=== PATIENT | female | born 1960 | race Caucasian/White ===

== ENCOUNTER 2018-12-24 09:30 | Emergency (ER) | payer BC, OTHER ==
[2018-12-24] MEDS ORDERED: Ketorolac Tromethamine 30 MG/ML VIAL ONE (10:32)
--- NOTE | 2018-12-24 11:04 | RAD ---
FPortable chest radiograph: 12/24/2018 COMPARISON: 12/04/2014 HISTORY:Chest pain FINDINGS: Lungs are clear. Heart and mediastinal contours unremarkable. IMPRESSION: No acute findings
[2018-12-24 11:25] LABS: #Basophils 0.1 thou/uL (0.0-0.2); #Eosinphils 0.2 thou/uL (0.0-0.7); #Lymphocytes 3.1 thou/uL (1.20-3.40); #Monocytes 0.9 thou/uL (0.11-0.59); #Neutrophils 8.8 thou/uL (1.40-6.50); %Basophils 0.5 % (0.0-1.0); %Eosinophils 1.7 % (0.0-10.0); %Lymphocytes 23.8 % (21.0-51.0); %Monocytes 6.5 % (0.0-10.0); %Neutrophils 67.5 % (42.0-75.0); Hemoglobin 13.8 g/dL (12.0-16.0); Mean Corpuscular HGB CONC 32.1 g/dL (32.0-36.0); Mean Corpuscular Hemoglobin 27.5 pg (27.0-31.0); Mean Corpuscular Volume 85.6 fL (78.0-98.0); Mean Platelet Volume 9.2 fL (7.4-10.4); Platelet Count 237 thou/uL (130-400); Red Blood Cell (RBC) Count 5.02 mill/uL (4.20-5.40)
[2018-12-24 11:35] LABS: ALT (SGPT) 10 U/L (8-55); AST (SGOT) 14 U/L (5-34); Albumin 3.9 g/dL (3.5-5.0); Alkaline Phosphatase 118 U/L (40-150); Anion Gap 9 mmol/L (10-20); BUN (Urea Nitrogen) 15 mg/dL (9.8-20.1); Bilirubin, Total 0.3 mg/dL (0.2-1.2); CK (CPK) 79 U/L (29-168); Calc. Creatinine Clearance 0 mL/min (70-130); Calcium 9.4 mg/dL (7.8-10.44); Carbon Dioxide 31 mmol/L (22-29); Chloride 104 mmol/L (98-107); Estimated GFR-MDRD 71; Globulin 2.5 g/dL (2.4-3.5); Glucose 81 mg/dL (70-105); Potassium 4.4 mmol/L (3.5-5.1); Protein, Total 6.4 g/dL (6.0-8.3); Sodium 140 mmol/L (136-145)
[2018-12-24 11:38] LABS: CKMB 1.2 ng/mL (0-6.6)
== END 2018-12-24 13:20 | disposition home or self-care (01) ==
LOC: ERS 09:30
DX: R07.89 Other chest pain (principal); F41.9 Anxiety disorder, unspecified; F17.210 Nicotine dependence, cigarettes, uncomplicated; Z79.899 Other long term (current) drug therapy
CPT/HCPCS: 71045; 80053; 82550; 82553; 84484; 85025; 93005; 96374; J1885

== ENCOUNTER 2020-07-24 20:55 | Observation (INO) | payer OTHER ==
[2020-07-24 22:36] LABS: Troponin I Less than 0.010 ng/mL (< 0.028)
[2020-07-24] MEDS ORDERED: Ondansetron PF 4 MG/2 ML Vial IVP PRN ×2 (22:44→22:45)
[2020-07-24] MEDS ORDERED: Ondansetron ODT 4 MG TAB PO PRN (22:44)
[2020-07-24] MEDS ORDERED: Acetaminophen 325 MG TAB PO PRN ×2 (22:44→22:45)
[2020-07-24] MEDS ORDERED: Acetaminophen 650 MG Suppository PR PRN (22:44)
[2020-07-24] MEDS ORDERED: Ondansetron ODT 4 MG TAB SL PRN (22:45)
--- NOTE | 2020-07-24 22:51 | PDOC.FPRHP ---
- History of Present Illness Chief Complaint: CP, SOB, exertional dyspnea History of Present Illness: 60 yo F with no significant PMH presented to [place] ED complaining of CP, SOB, and exertional dyspnea. Patient explains she has been experiencing R sided jaw and shoulder pain since Thursday as well as significant congestion for several months. She went to doctor on Thursday who gave her a steroid shot, abx shot, and z-gayle for supposed sinus infection. This improved her congestion and pressure she was feeling in her face. Today the jaw and shoulder pain was worsening and she was also having chest pain in the center of her chest, SOB that worsened with exertion. Patient also complained of intermittent blurred vision since Thursday and a headache that has worsened today. ED Course: nitro and plavix in [place] ED which improved CP, SOB and jaw pain - Allergies/Adverse Reactions Allergies Allergy/AdvReac Type Severity Reaction Status Date / Time aspirin Allergy Verified 07/25/20 01:48 iodine Allergy Verified 07/25/20 01:48 meperidine HCl [From Demerol] Allergy Verified 07/25/20 01:48 - Home Medications Medication Instructions Recorded Confirmed Type Azithromycin [Zithromax] 250 mg PO DAILY 07/25/20 07/25/20 History - History PMHx: None PSHx: Hysterectomy at 28yo FHx: Mom-afib, alzheimers. Dad-HTN, DM, CHF Social: Denies T/A/D - Review of Systems General: denies: fever/chills Eyes: reports: vision changes ENT: reports: nasal congestion Respiratory: reports: congestion, shortness of breath. denies: cough Cardiovascular: reports: chest pain. denies: palpitation, edema, paroxysmal nocturnal dyspnea, orthopnea Gastrointestinal: reports: diarrhea. denies: nausea, vomiting, constipation, abdominal pain Genitourinary: denies: dysuria Skin: denies: rashes, itching Musculoskeletal: denies: pain, tenderness, swelling Neurological: reports: other (headache). denies: syncope, weakness - Vital signs BP: 149/69 HR: 75 RR: 16 Tmax: 98.1 Pox: 97% on RA Wt: 125kg FMR H&P: Results - EKG Interpretation EKG: sinus rhythm - Radiology Interpretation Chest x-ray Status: report reviewed by me (no acute process) FMR H&P: A/P - Plan 60 yo F with no significant PMH complaining of CP, SOB, and exertional dyspnea ACS r/o -initial trop negative -EKG- sinus rhythm -CXR - normal -D dimer negative -trend trops -stress test in AM -TSH, Mg, Phos, lipids pending Elevated blood pressure - No diagnosis of HTN - 149/69 - Continue to monitor DVT PPx: SCDs Diet: HH- NPO at midnight PCP-CC Code: FULL Dispo: eLOS <48hours pending troponin and stress test results FMR H&P: Upper Level - Plan Date/Time: 07/24/20 0261 I, Kali Tai DO, have evaluated this patient and agree with findings/plan as outlined by management intern resident. Pertinent changes/additions are listed here. 60 yo presents with chest and jaw pain relieved with nitro at outside ED she has multiple risk factors for CAD. her pain was sharp/stabbing in the middle of her chest with associated r jaw pain that would come and go intermittently. she denies any RIDER, exertional chest pain, syncope or SOB. hx of recurrent sinus infections treated recent with steroid and azithro. on exam she is comfortable and pain free, ttp over sternum, RRR, CTAB. VSS, EKG wnl, CXR wo acute cardiopulm abnormality. labs wnl. admit for acs ro, trend trop repeat ekg/nitro for chest pain. plan for stress in AM. risk stratify. suspect source of pain to be msk. See management intern note for mgmt of chronic med problems. Addendum - Attending - Attending Attestation Date/Time: 07/25/20 0026 I personally evaluated the patient and discussed the management with Dr. Nelson/Zaire. I agree with the History, Examination, Assessment and Plan documented above with any addition or exceptions noted below.
[2020-07-24 23:26] LABS: Cardiac Risk 4.5 (Less than 4.5); Cholesterol 177 mg/dl (< 200 Desired); HDL Cholesterol 39 mg/dL (>60 Neg Risk); LDL Cholesterol, Calculated 117 mg/dL; Phosphorus 2.8 mg/dL (2.3-4.7); Triglycerides 106 mg/dL (Less than 150)
[2020-07-24 23:53] VITALS: BMI 49.9
[2020-07-25 01:17] LABS: Troponin I Less than 0.010 ng/mL (< 0.028)
--- NOTE | 2020-07-25 06:22 | PDOC.FM ---
- Subjective Subjective: Patient reports no chest/jaw/shoulder pain, overall feels the best out of any days over the past week. - Objective MAR Reviewed: Yes Vital Signs & Weight: Vital Signs (12 hours) Temp Pulse Resp BP Pulse Ox 07/25/20 03:40 98.1 F 67 12 160/74 H 96 07/24/20 22:45 98.1 F 75 16 149/69 H 97 07/24/20 22:44 97 Weight Weight 123.876 kg Phys Exam - Physical Examination Constitutional: NAD Respiratory: no wheezing, no rales, no rhonchi, clear to auscultation bilateral Cardiovascular: RRR, no significant murmur, no rub Gastrointestinal: soft, non-tender, no distention, positive bowel sounds Musculoskeletal: no edema, pulses present Neurological: non-focal, moves all 4 limbs Dx/Plan - Plan Plan: 60 yo F with no significant PMH complaining of CP, SOB, and exertional dyspnea ACS r/o -Trop negative X3 -EKG- sinus rhythm -CXR - normal -D dimer negative -stress test today Elevated blood pressure - No diagnosis of HTN - HTN 149-160/69-74 - Continue to monitor DVT PPx: SCDs Diet: NPO until stress test PCP-CC Code: FULL Dispo: eLOS <48hours, DC today pending stress test Addendum - Attending - Attending Attestation Date/Time: 07/25/201825 I personally evaluated the patient and discussed the management with Dr. Gomez I agree with the History, Examination, Assessment and Plan documented above with any addition or exceptions noted below - Patient without complaints. no further episodes of chest pain. Afebrile VSS A/P: 1) Chest pain r/o ACS - trop negative x 3; stress test pending. If negative will plan to d/c home.
[2020-07-25 13:00] LABS: SARS-CoV-2 MS2 Positive; SARS-CoV-2 N Gene Negative; SARS-CoV-2 S Gene Negative; SARS-CoV-2 by NAA Not Detected (NotDetected); SARS-CoV-2 orf1ab Negative
[2020-07-26] MEDS ORDERED: Polyethylene Glycol 3350 17 GM Packet PO PRN (06:05)
--- NOTE | 2020-07-26 07:58 | PDOC.FM ---
- Subjective Subjective: Patient doing well this AM, reports neck pain overnight that was relieved with ice. Otherwise feeling well. Concerned that she is unaware of what's happening with her stress test. - Objective Vital Signs & Weight: Vital Signs (12 hours) Temp Pulse Resp BP Pulse Ox 07/26/20 05:27 96 07/26/20 04:30 97.6 F 61 18 152/72 H 96 Weight Weight 122.186 kg I&O: 07/25/20 07/26/20 07/27/20 06:59 06:59 06:59 Intake Total 500 1540 Output Total 2800 Balance 500 -1260 Phys Exam - Physical Examination Constitutional: NAD Respiratory: no wheezing, no rales, no rhonchi Cardiovascular: RRR, no significant murmur, no rub Gastrointestinal: soft, non-tender, no distention, positive bowel sounds Dx/Plan - Plan Plan: 60 yo F with no significant PMH complaining of CP, SOB, and exertional dyspnea ACS r/o -Trop negative X3 -EKG- sinus rhythm -CXR - normal -D dimer negative -stress test today-appears it is 2 part study Elevated blood pressure - No diagnosis of HTN - HTN 149-160/69-74 - Continue to monitor - Likely work up outpatient DVT PPx: SCDs Diet: NPO until stress test PCP-CC Code: FULL Dispo: eLOS <48hours, DC today pending stress test Addendum - Attending - Attending Attestation Date/Time: 07/26/20 [id number] I personally evaluated the patient and discussed the management with Dr. Gomez I agree with the History, Examination, Assessment and Plan documented above with any addition or exceptions noted below - Patient wihtout complaints. No further chest pain. Afebrile VSS. A/P: 1) Chest pain- stress test negative; plan to d/c home and follow-up with PCP.
[2020-07-26] MEDS ORDERED: Azithromycin 250 MG TAB PO SCH (09:00)
--- NOTE | 2020-07-26 11:29 | NM ---
CARDIAC SPECT: CLINICAL HISTORY: 60-year-old female with chest pain and dyspnea. Family history of coronary artery disease. TECHNIQUE: A myocardial perfusion scan was performed using the single isotope two day protocol with 32 mCi techn etium-99m sestamibi injected intravenously for both stress and rest images. Pharmacologic stress with Adenosine was monitored and interpreted by Dr. Green. FINDINGS: Homogeneous tracer distribution is seen in the myocardial segments on stress and rest images without fixed or reversible defects. GATED SPECT LVEF: 64%. WALL MOTION EXAM: Normal. IMPRESSION: Normal myocardial perfusion scan. POS: BEL
[2020-07-26 12:00] VITALS: BP 164/79; TEMP 97.5
--- NOTE | 2020-07-27 01:50 | DIS ---
DATE OF ADMISSION: 07/24/2020 DATE OF DISCHARGE: 07/26/2020 RESIDENT: Nickolas Gomez MD ADMITTING ATTENDING: Arcenio Keller MD DISCHARGE ATTENDING: Sabrina Phillip MD CONSULTS: None. PROCEDURES: Myocardial perfusion stress test done by Nuclear Medicine showing normal perfusion of heart in both resting and stress states. PRIMARY DIAGNOSIS: Acute coronary syndrome rule out. SECONDARY DIAGNOSES: 1. Chronic sinusitis. 2. Elevated blood pressure reading. 3. Obesity. DISCHARGE MEDICATIONS: 1. Azithromycin 250 mg p.o. x1 day, continued for sinusitis. 2. Tylenol 650 mg p.o. q.4 hours p.r.n. for pain. 3. MiraLAX 17 g pack p.o. daily p.r.n. DISCONTINUED MEDICATIONS: None. HISTORY OF PRESENT ILLNESS/HOSPITAL COURSE: The patient is a 60-year-old female, who presented to the hospital with chest pain, shortness of breath, and exertional dyspnea with pain radiating to her jaw and shoulder on the right side with significant congestion for several months. On 07/22/2020, the patient went to an urgent care doctor, who gave her a steroid shot and azithromycin for diagnosis of sinusitis. Today, her jaw and shoulder pain started worsening. She received nitroglycerin and Plavix in [place] ED, which improved her chest pain, shortness of breath, and jaw pain. The patient underwent a nuclear medicine myocardial perfusion test. Test was a 2-day test with results as above showing normal perfusion. Discussed these findings with the patient. Discussed that the pain she was feeling was likely not related to her heart. The patient was asking about next steps in working up the congestion, jaw pain, and chest pain she has been recently experiencing. Azithromycin that was prescribed on 07/22 was continued. The patient will have one more day following discharge to complete the course. DISPOSITION: Stable. DISCHARGE INSTRUCTIONS: 1. Location: Home. 2. Diet: Heart healthy, low-sodium diet. 3. Activity: As tolerated. 4. Followup. Please follow up with PCP, Dr. Gonzalez, within 14 days. Discussed with the patient to talk about normal stress test. The patient had a mildly elevated blood pressures into the 130 and 140 systolic as well as normal range pressures. Antihypertensives were not started at this time, management will be deferred to outpatient provider. Job ID: [id number] [facility]
== END 2020-07-26 12:30 | disposition home or self-care (01) ==
LOC: ERS 20:55 → 2NO 21:38
PROVIDERS: ADMIT Family Medicine; ATTEND Family Medicine
DX: R07.9 Chest pain, unspecified (principal); R06.02 Shortness of breath; R68.84 Jaw pain; J32.9 Chronic sinusitis, unspecified; R03.0 Elevated blood-pressure reading, without diagnosis of hypertension; E66.9 Obesity, unspecified; Z68.42 Body mass index [BMI] 45.0-49.9, adult; Z87.891 Personal history of nicotine dependence; Z79.2 Long term (current) use of antibiotics; Z88.5 Allergy status to narcotic agent; Z88.6 Allergy status to analgesic agent; Z91.041 Radiographic dye allergy status; Z20.828 Contact with and (suspected) exposure to other viral communicable diseases
CPT/HCPCS: 36415; 78452; 80061; 83036; 83735; 84100; 84443; 84484; 87635; 93017; 94760; 99285; A9500; G0378; J0153; U0003

== ENCOUNTER 2023-09-24 15:47 | Outpatient (CLI) | payer BC | END 2023-09-24 15:48 | disposition home or self-care (01) | LOC: SCSRAD 15:47 | PROVIDERS: ATTEND Internal Medicine Rheumatology | DX: M17.0 Bilateral primary osteoarthritis of knee (principal) | CPT/HCPCS: 73565 ==